=== PATIENT | female | born 1965 ===

== ENCOUNTER 2016-11-16 09:14 | Day surgery (SDC) | payer BC ==
[2016-11-09 08:25] VITALS: BMI 25.2
[2016-11-16] MEDS ORDERED: Midazolam 2 MG/2 ML VIAL ONE (12:25)
[2016-11-16] MEDS ORDERED: Propofol 10 mg/ml Inj (20 ML) ONE (12:26)
--- NOTE | 2016-11-16 12:52 | PCM.SURG1 ---
Surgeon's Initial Post Op Note - Surgeon's Notes Surgeon: Dr. Roy Box Office Manager: None Type of Anesthesia: General LMA Anesthesia Administered By: Dr. Borja Pre-Operative Diagnosis: 51 yo Postmenopausal bleeding, Irregular mentrual cycle Operative Findings: Av uterus area atrophy, endometrial polyp Post-Operative Diagnosis: Same as above Operation Performed: Hysteroscopy Myosure D and C Specimen/Specimens Removed: EMC,ECC, Polyp Estimated Blood Loss: EBL {In ML}: 5 Blood Products Given: N/A Drains Used: No Drains Post-Op Condition: Good Date of Surgery/Procedure: 11/16/16 Time of Surgery/Procedure: 12:52
[2016-11-16 13:28] VITALS: O2SAT 100
[2016-11-16 15:19] VITALS: BP 127/85; PULSE 59; RESP 16; TEMP 97.8
--- NOTE | 2016-11-16 17:16 | OP ---
PROCEDURE DATE: 11/16/2016 PREOPERATIVE DIAGNOSES: A 51-year-old female with a history of irregular menstrual period, menorrhagia, postmenopausal bleeding, endometrial polyp. POSTOPERATIVE DIAGNOSIS: A 51-year-old female with a history of irregular menstrual period, menorrhagia, postmenopausal bleeding, endometrial polyp. PROCEDURE: Hysteroscopy, MyoSure, D and C. SURGEON: Shabnam Roy MD ANESTHESIOLOGIST: Dr. Hill. TYPE OF ANESTHESIA: General LMA. FINDINGS: Anteverted uterus, areas of atropic endometrium with endometrial polyp. COMPLICATION: None. ESTIMATED BLOOD LOSS: Approximately 5 mL. INTAKE AND OUTPUT: 100 mL. SPECIMENS: EMC, ECC, and polyp. DESCRIPTION OF PROCEDURE: The patient was informed of the risk factors, benefits, and alternative of the procedure. Risks did include an infection, bleeding, damages to surrounding organs and tissues, complications from anesthesia and possible . After informed consent, she was then taken to the operating room where she was prepped and draped in normal sterile fashion, placed in dorsal lithotomy position. A weighted speculum was placed into the vagina. The anterior lip of the cervix was grasped with a single-toothed tenaculum. The uterus was gently sounded to approximately 8 cm. Upon complete uterine dilation, the scope was then placed and complete surveillance of the uterine cavity was then performed. In that particular instance, a MyoSure light was then utilized. Under direct visualization, the endometrial polyp was removed and submitted to pathology. In that particular instance, the hysteroscopy was then removed and a fractional D and C was then performed. Excellent hemostasis was noted. Upon completion, all instruments were removed from the vagina. Instruments and lap counts were correct x2. The patient was then taken to the recovery room in stable condition and instructed to follow up in the office in approximately 2 weeks. Shabnam Roy MD
== END 2016-11-16 14:57 | disposition home or self-care (01) ==
LOC: C.SDS 09:14
PROVIDERS: ATTEND Obstetrics & Gynecology
DX: N92.0 Excessive and frequent menstruation with regular cycle (principal)
CPT/HCPCS: 58563; 88305; J2001; J2250; J2405; J2704; J3010